=== PATIENT | female | born 1945 | race Caucasian/White ===

== ENCOUNTER → 2018-05-30 09:12 | Outpatient (CLI) | payer MEDICARE, SELFPAY ==
--- NOTE | 2018-05-30 | DI.MG.S_ITS ---
BILATERAL DIGITAL SCREENING MAMMOGRAM 3D/2D WITH CAD: 05/30/2018 CLINICAL: Routine screening. Comparison is made to exams dated: 05/03/2017 mammogram, 11/12/2015 mammogram - [facility], and 04/10/2012 mammogram - [facility]. There are scattered fibroglandular elements in both breasts. Current study was also evaluated with a Computer Aided Detection (CAD) system. There is a mole marker on the left breast. No significant masses, calcifications, or other findings are seen in either breast. There has been no significant interval change. IMPRESSION: NEGATIVE There is no mammographic evidence of malignancy. A 1 year screening mammogram is recommended. This exam was interpreted at Station ID: [id number]. NOTE: For mammograms, a report in lay terms will be sent to the patient. Approximately 15% of breast malignancies will not be visualized mammographically. In the management of a palpable breast mass, a negative mammogram must not discourage biopsy of a clinically suspicious lesion. Electronically Signed By: Jose Juan pizarro/pankaj:05/30/2018 18:46:04 letter sent: Normal Exam ACR BI-RADS Category 1: Negative 3341F
== END ==
PROVIDERS: PCP Physician Assistant; Visit Provider Physician Assistant
DX: Z12.31 Encounter for screening mammogram for malignant neoplasm of breast (principal)
CPT/HCPCS: 77063; 77067

== ENCOUNTER → 2019-06-18 08:53 | Outpatient (CLI) | payer MEDICARE, SELFPAY ==
--- NOTE | 2019-06-18 | DI.MG.S_ITS ---
BILATERAL DIGITAL SCREENING MAMMOGRAM 3D/2D WITH CAD: 06/18/2019 CLINICAL: Routine screening. Family history of breast cancer. Comparison is made to exams dated: 05/30/2018 mammogram, 05/03/2017 mammogram, and 11/12/2015 mammogram - [facility]. There are scattered fibroglandular elements in both breasts. Current study was also evaluated with a Computer Aided Detection (CAD) system. No significant masses, calcifications, or other findings are seen in either breast. There has been no significant interval change. IMPRESSION: NEGATIVE There is no mammographic evidence of malignancy. A 1 year screening mammogram is recommended. This exam was interpreted at Station ID: [id number]. NOTE: For mammograms, a report in lay terms will be sent to the patient. Approximately 15% of breast malignancies will not be visualized mammographically. In the management of a palpable breast mass, a negative mammogram must not discourage biopsy of a clinically suspicious lesion. Electronically Signed By: Armando trent/pankaj:06/18/2019 10:04:24 letter sent: Normal Exam ACR BI-RADS Category 1: Negative 3341F
== END ==
PROVIDERS: PCP Physician Assistant; Visit Provider Physician Assistant
DX: Z12.31 Encounter for screening mammogram for malignant neoplasm of breast (principal); Z80.3 Family history of malignant neoplasm of breast
CPT/HCPCS: 77063; 77067

== ENCOUNTER → 2020-06-22 08:27 | Outpatient (CLI) | payer MEDICARE, BC, SELFPAY ==
--- NOTE | 2020-06-22 08:34 | DI.MG.S_ITS ---
BILATERAL DIGITAL SCREENING MAMMOGRAM 3D/2D WITH CAD: 06/22/2020 CLINICAL: Routine screening. Family history of breast cancer. Comparison is made to exams dated: 06/18/2019 mammogram, 05/30/2018 mammogram, and 05/03/2017 mammogram - [facility]. There are scattered fibroglandular elements in both breasts. Current study was also evaluated with a Computer Aided Detection (CAD) system. No significant masses, calcifications, or other findings are seen in either breast. There has been no significant interval change. IMPRESSION: NEGATIVE There is no mammographic evidence of malignancy. A 1 year screening mammogram is recommended. This exam was interpreted at Station ID: [id number]. NOTE: For mammograms, a report in lay terms will be sent to the patient. Approximately 15% of breast malignancies will not be visualized mammographically. In the management of a palpable breast mass, a negative mammogram must not discourage biopsy of a clinically suspicious lesion. Electronically Signed By: Armando trent/pankaj:06/22/2020 08:58:39 letter sent: Normal Exam ACR BI-RADS Category 1: Negative 3341F
== END ==
PROVIDERS: PCP Physician Assistant; Referring Provider Physician Assistant; Visit Provider Physician Assistant
DX: Z12.31 Encounter for screening mammogram for malignant neoplasm of breast (principal); Z80.3 Family history of malignant neoplasm of breast
CPT/HCPCS: 77063; 77067

== ENCOUNTER → 2021-04-05 08:41 | Outpatient (CLI) | payer MEDICARE, BC, SELFPAY ==
[2021-04-05 13:09] LABS: COVID19 -Nasal RAPID Negative (Negative)
== END ==
PROVIDERS: PCP Physician Assistant; Referring Provider Physician Assistant; Visit Provider Physician Assistant
DX: Z20.822 Contact with and (suspected) exposure to COVID-19 (principal); Z01.812 Encounter for preprocedural laboratory examination
CPT/HCPCS: 87635; C9803

== ENCOUNTER 2021-04-07 07:10 | Day surgery (SDC) | payer MEDICARE, BC, SELFPAY ==
--- NOTE | 2021-04-06 17:28 | PM.PREOP ---
Pre-operative Note COVID-19 COVID-19 status: Negative Interval Note History & Physical reviewed/Exam performed by Physician: Yes Changes to H&P: No
--- NOTE | 2021-04-06 17:29 | P.OP_ITS ---
Operative Date/Time/Diagnoses Date of procedure: 04/07/21 Time of procedure: 08:45 Procedure & Clinicians Procedure: Preoperative diagnoses: 1. Left advanced nuclear sclerotic and cortical cataract. 2. Rosacea 3. History of skin cancer 4. 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 Cataract removed by phacoemulsification with placement of posterior chamber intraocular lens. Procedure: Phacoemulsification with posterior chamber intraocular lens implant Surgeon: Blanca Napoles MD Complications: None Specimen: None Implant: DIBOO+17.0 Blood loss: None Anesthesia: Retrobulbar with monitored standby Description of procedure: Patient presents with a complaint of decreased vision due to cataract which is affecting activities of daily living with problems with night driving. The patient wants surgery to improve vision. The patient understands the extra risk of surgery during the COVID-19 epidemic and wishes to proceed. They have tested negative for active virus within 72 hours of the procedure. The patient was taken to the operating room and given IV sedation. A retrobulbar block consisting of 6 cc of 2% xylocaine without epinephrine mixed half and half with 0.5% Marcaine with 1 cc of hyaluronidase added is placed between the medial and lateral 1/3 of the inferior orbital rim. The eye is manually massaged for 30 sec, prepped using Betadine solution, and draped in the usual sterile fashion. Temporal approach was made, a 1 mm side-port incision was made 90? from the proposed clear corneal incision position. Phenylephrine 1.5% mixed with 1% xylocaine 0.2 cc was placed into the anterior chamber .Endocoat followed by Sveta was then placed. A 2.6 mm clear incision with a 2.6 mm blade was placed. A 360 degree capsulorrhexis style capsulotomy was then performed with a cystitome needle on a Healon. Hydrodelineation and hydrodissection were performed. The phacoemulsification unit is introduced, and sculpting notice used to groove the central lens. It is then removed in chopping mode. Epi nucleus is removed with epinuclear mode and irrigation aspiration was used to remove the peripheral cortex. The posterior capsule is polished. The intraocular lens is selected, inspected, power confirmed, and placed in the posterior chamber. The wound was stromally hydrated and tested for leaks, there was none and it was left sutureless. Intracameral moxifloxacin 0.1 cc was placed into the anterior chamber. Kenalog 0.2 cc was placed in the superior subconjunctival space. A drop of antibiotic and was placed and the eye was patched and shielded. The patient was stable and returned to the recovery room in excellent condition. Dictated by: Blanca Napoles MD Copy to: [facility] Same procedure as scheduled: Yes
[2021-04-07] MEDS: PROPARACAINE 0.5% OPHTH SOL 2 DROPS EYE-OP (07:55)
[2021-04-07] MEDS: CATARACT EYE COMPOUND (10 DROPS/SYRINGE) 3 DROPS EYE-OP (07:57)
[2021-04-07 07:58] VITALS: BP 162/80; PULSE 69; RESP 16; TEMP 36.6; O2SAT 100; BMI 24.3
[2021-04-07] MEDS: ERYTHROMYCIN OPHTH 1 GM OINT 1 APPLIC EYE-LEFT (08:58)
[2021-04-07] MEDS: TRIAMCINOLONE 50 MG/5 ML VIAL INJ (08:59)
[2021-04-07] MEDS: MOXIFLOXACIN INJ 4 MG/0.8 ML VIAL 0.5 MG EYE-OP (08:59)
[2021-04-07] MEDS: PHENYLEPHRINE/LIDOCAINE VIAL (OR) 0.2 ML EYE-OP (08:59)
[2021-04-07] MEDS: HYALURONATE SODIUM 30 MG-10 MG/ML SYRINGES 1 BOX INTRAOCULA (08:59)
[2021-04-07] MEDS: LIDOCAINE 2% 4 ML, BUPIVACAINE 0.5% (PF) 4 ML, HYALURONIDASE 150 UNIT INJ (09:00)
[2021-04-07] MEDS: BALANCED SALT IRRIG SOLN NO.2 500 ML, EPINEPHrine 1 MG IRR (09:00)
[2021-04-07 09:41] VITALS: BP 133/74; PULSE 55; RESP 16; TEMP 35.9; O2SAT 100
--- NOTE | 2021-04-07 11:40 | SUR.PHASEII ---
Late entry: Pt ready to go, left unit in stable condition.
== END 2021-04-07 10:05 | disposition home or self-care (01) ==
LOC: OR 07:12
PROVIDERS: Referring Provider Ophthalmology; Visit Provider Ophthalmology
PROC: (CPT 66984; principal; 2021-04-07 08:45)
DX: H25.812 Combined forms of age-related cataract, left eye (principal)
CPT/HCPCS: 66984; J0171; J2704; J3301; J3470

== ENCOUNTER → 2021-05-03 11:07 | Outpatient (CLI) | payer MEDICARE, BC, SELFPAY ==
[2021-05-03 12:26] LABS: COVID19 -Nasal RAPID Negative (Negative)
== END ==
PROVIDERS: Referring Provider Nurse Practitioner Family; Visit Provider Nurse Practitioner Family
DX: Z20.822 Contact with and (suspected) exposure to COVID-19 (principal)
CPT/HCPCS: 87635; C9803

== ENCOUNTER 2021-05-05 06:17 | Day surgery (SDC) | payer MEDICARE, BC, SELFPAY ==
--- NOTE | 2021-05-04 19:30 | PM.PREOP ---
Pre-operative Note COVID-19 COVID-19 status: Negative Interval Note History & Physical reviewed/Exam performed by Physician: Yes Changes to H&P: No
--- NOTE | 2021-05-04 19:30 | PM.OP.1 ---
Operative Date/Time/Diagnoses Date of procedure: 05/05/21 Time of procedure: 07:45 Procedure & Clinicians Procedure: Preoperative diagnoses: 1. Right significant nuclear sclerotic and cortical cataract. 2. History of shingles 3. Recently diagnosed tobramycin allergy due to hives. Postoperative diagnoses: 1. Cataract removed by phacoemulsification with placement of posterior chamber intraocular lens. Procedure: Phacoemulsification with posterior chamber intraocular lens implant Surgeon: Blanca Napoles MD Complications: None Specimen: None Implant: DIBOO+17.5 Blood loss: None Anesthesia: Retrobulbar with monitored standby Description of procedure: Patient presents with a complaint of decreased vision due to cataract which is affecting activities of daily living with problems with night driving. She is uncomfortable driving at night even after her left cataract surgery. The patient wants surgery to improve vision. The patient understands the extra risk of surgery during the COVID-19 epidemic and wishes to proceed. They have tested negative for active virus within 72 hours of the procedure. The patient was taken to the operating room and given IV sedation. A retrobulbar block consisting of 6 cc of 2% xylocaine without epinephrine mixed half and half with 0.5% Marcaine with 1 cc of hyaluronidase added is placed between the medial and lateral 1/3 of the inferior orbital rim. The eye is manually massaged for 30 sec, prepped using Betadine solution, and draped in the usual sterile fashion. For extra comfort lidocaine gel was applied topically. Temporal approach was made, a 1 mm side-port incision was made 90? from the proposed clear corneal incision position. Phenylephrine 1.5% mixed with 1% xylocaine 0.2 cc was placed into the anterior chamber .Endocoat followed by Sveta was then placed. A 2.6 mm clear incision with a 2.6 mm blade was placed. A 360 degree capsulorrhexis style capsulotomy was then performed with a cystitome needle on a Healon. Hydrodelineation and hydrodissection were performed. The phacoemulsification unit is introduced, and sculpting notice used to groove the central lens. It is then removed in chopping mode. Epi nucleus is removed with epinuclear mode and irrigation aspiration was used to remove the peripheral cortex. The posterior capsule is polished. The intraocular lens is selected, inspected, power confirmed, and placed in the posterior chamber. The wound was stromally hydrated and tested for leaks, there was none and it was left sutureless. Intracameral moxifloxacin 0.1 cc was placed into the anterior chamber. Kenalog 0.2 cc was placed in the superior subconjunctival space. A drop of antibiotic and was placed and the eye was patched and shielded. The patient was stable and returned to the recovery room in excellent condition. Dictated by: Blanca Napoles MD Copy to: [facility] Same procedure as scheduled: Yes
[2021-05-05 06:48] VITALS: BP 136/73; PULSE 63; RESP 18; TEMP 36.9; O2SAT 100; BMI 23.6
[2021-05-05] MEDS: PROPARACAINE 0.5% OPHTH SOL 2 DROPS EYE-OP (06:54)
[2021-05-05] MEDS: CATARACT EYE COMPOUND (10 DROPS/SYRINGE) 3 DROPS EYE-OP (07:01)
[2021-05-05] MEDS: LIDOCAINE 2% 4 ML, BUPIVACAINE 0.5% (PF) 4 ML, HYALURONIDASE 150 UNIT INJ (08:03)
[2021-05-05] MEDS: ERYTHROMYCIN OPHTH 1 GM OINT 1 APPLIC EYE-RIGHT (08:19)
[2021-05-05] MEDS: HYALURONATE SODIUM 30 MG-10 MG/ML SYRINGES 1 BOX INTRAOCULA (08:20)
[2021-05-05] MEDS: MOXIFLOXACIN INJ 4 MG/0.8 ML VIAL 0.5 MG EYE-OP (08:20)
[2021-05-05] MEDS: TRIAMCINOLONE 50 MG/5 ML VIAL INJ (08:20)
[2021-05-05] MEDS: PHENYLEPHRINE/LIDOCAINE VIAL (OR) 0.2 ML EYE-OP (08:20)
[2021-05-05] MEDS: BALANCED SALT IRRIG SOLN NO.2 500 ML, EPINEPHrine 1 MG IRR (08:21)
[2021-05-05] MEDS: LIDOCAINE 2% (GLYDO) 6 ML GEL TOP (08:23)
[2021-05-05 08:53] VITALS: BP 125/74; PULSE 62; RESP 16; TEMP 36.7; O2SAT 100
--- NOTE | 2021-05-05 09:03 | SUR.PHASEII ---
Pt ready to go, ride called. Ride did not answer, message left.
--- NOTE | 2021-05-05 09:09 | SUR.PHASEII ---
Pt left unit in stable condition.
== END 2021-05-05 09:09 | disposition home or self-care (01) ==
LOC: OR 06:18
PROVIDERS: Referring Provider Ophthalmology; Visit Provider Ophthalmology
PROC: (CPT 66984; principal; 2021-05-05 07:45)
DX: H25.811 Combined forms of age-related cataract, right eye (principal)
CPT/HCPCS: 66984; J0171; J2704; J3301; J3470

== ENCOUNTER → 2022-11-16 | Outpatient (CLI) | payer MEDICARE, BC, SELFPAY ==
--- NOTE | 2022-11-16 09:52 | DI.MG.S_ITS ---
BILATERAL DIGITAL SCREENING MAMMOGRAM 3D/2D WITH CAD: 11/16/2022 CLINICAL: Routine screening. Family history of breast cancer. Comparison is made to exams dated: 06/22/2020 mammogram, 06/18/2019 mammogram, 05/30/2018 mammogram, and 05/03/2017 mammogram - [facility]. There are scattered areas of fibroglandular density in both breasts (category b / 25%-50% glandular tissue). Current study was also evaluated with a Computer Aided Detection (CAD) system. No significant masses, calcifications, or other findings are seen in either breast. There has been no significant interval change. IMPRESSION: NEGATIVE There is no mammographic evidence of malignancy. A 1 year screening mammogram is recommended. Based on the Tyrer Cuzick model (a risk assessment model) the patient's lifetime risk is 6.0% and her 10 year risk is 6.0%. According to the ACR, ACS, and NCCN guidelines, an annual breast MRI exam along with mammogram is recommended if the patient's lifetime risk is 20% or greater. This exam was interpreted at Station ID: [id number]. NOTE: For mammograms, a report in lay terms will be sent to the patient. Approximately 15% of breast malignancies will not be visualized mammographically. In the management of a palpable breast mass, a negative mammogram must not discourage biopsy of a clinically suspicious lesion. Electronically Signed By: Rolando campos/pankaj:11/16/2022 15:27:17 letter sent: Normal Exam ACR BI-RADS Category 1: Negative 3341F
--- NOTE | 2022-11-16 09:52 | DI.RAD.S_ITS ---
Bone Density Report Name: KAITLIN OLMOS Age: 77 Sex: Female Ethnicity: White Date of : 1945 Indication: postmenopausal; screening for osteoporosis; Referring Provider: CRISTOFER OTTO Study: Bone densitometry was performed. Exam Date: November 16, 2022 Accession number: [id number] Bone Density: Region BMD T-score Z-score Classification AP Spine(L1, L2, L3) 0.732 -2.6 -0.2 Osteoporosis Femoral Neck (Left) 0.554 -2.7 -0.5 Osteoporosis Total Hip (Left) 0.673 -2.2 -0.4 Osteopenia Femoral Neck (Right) 0.544 -2.7 -0.6 Osteoporosis Total Hip (Right) 0.661 -2.3 -0.5 Osteopenia Total Hip Mean 0.667 -2.3 -0.5 Osteopenia World Health Organization criteria for BMD impression classify patients as: Normal (T-score at or above -1.0), Osteopenia (T-score between -1.0 and -2.5), or Osteoporosis (T-score at or below -2.5). 10-year Fracture Risk: FRAX not reported because: Some T-score for Spine Total or Hip Total or Femoral Neck at or below -2.5 Impression: The patient has osteoporosis, based on the Left Femoral Neck T-score. Discussion: INCREASED RISK OF FRACTURE. BONE DENSITY IS UNDESIRABLY LOW AT ONE OR MORE SKELETAL SITES, CONSISTENT WITH POSTMENOPAUSAL OSTEOPOROSIS. This patient's lowest T-score meets the World Health Organization's (WHO) criteria for osteoporosis at one or more sites (T-score -2.5 or below). In untreated patients, the risk of osteoporotic fracture increases approximately two-fold for each 1.0 SD decrease in T-score. Low bone density is not the only risk factor for fracture; also consider factors such as patient's age, frailty or poor health, risk of falling, risk of injury, previous osteoporotic fracture, family history of osteoporosis, cigarette smoking, low body weight, etc. Not everyone with low bone mineral density has osteoporosis; osteomalacia and other metabolic bone disorders should also be considered. Patients who have osteoporosis should be evaluated for specific diseases and conditions (secondary causes) that may cause or contribute to bone loss. The [place] [employer] Endocrinologists (AACE) and National Osteoporosis Foundation (NOF) recommend pharmacologic intervention for all postmenopausal women whose T-score is in this range. The patient should follow a healthful lifestyle (good nutrition with adequate calcium and vitamin D, and appropriate weight-bearing exercise). Follow-Up: Consider a repeat BMD and Vertebral Fracture Assessment (VFA) exam in 2 years or sooner if medically necessary, to reassess this patient's status. Reported by: FABIOLA GONSALES M.D. on 11/16/2022 10:45:00 AM.
--- NOTE | 2022-11-16 09:52 | DI.US.S_ITS ---
PROCEDURE: US PELVIC COMPLETE INDICATIONS: PAIN AND FAMILY HISTORY OF UTERINE CANCER (MOM) TECHNIQUE: Real-time scanning was performed of the pelvic organs, with image documentation. Additional endovaginal scanning was necessary due to incomplete visualization of the adnexal and endometrial structures by transabdominal scanning. COMPARISON: None. FINDINGS: Uterus: Uterus is anteverted and normal in size at 6.4 x 3.9 x 2.8 cm. The myometrium is heterogeneous with foci of calcification. The endometrium measures 5.8 mm combined thickness. Nabothian cysts are seen in cervix. There is trace anechoic fluid in the endocervical canal. Ovaries: The right ovary is not visualized. The left ovary measures 2.4 x 1.5 x 1.0 cm, with a calculated ovarian volume of 1.9 cc. The ovaries have a normal sonographic appearance. Less than 12 follicles can be seen in the left ovary. There is arterial venous flow on Doppler ultrasound in left ovary. No adnexal masses are seen. Other: No pathologic free abdominal or pelvic fluid. IMPRESSION: 1. Endometrium is thickened measuring 5.8 mm. In the postmenopausal woman, endometrial cancer needs to be excluded. Recommend endometrial sampling. 2. Heterogeneous myometrium with foci of calcification. 3. Right ovary is not visualized. Left ovary is grossly normal. 4. No free fluid in pelvis. We strive to produce accurate, complete, and clear reports of imaging services. To assist us in improving patient care, this report was composed using standard report templates and voice recognition software. Therefore, it may contain abnormal punctuation, insertions and/or omissions. Occasional wrong-word or sound-alike substitutions may occur. Though we review the report and make efforts to correct it, we do recommend that the report be read carefully in proper context to recognize any text inaccuracies. Dictated by: Masoud Martin M.D. on 11/17/2022 at 9:23 Approved by: Masoud Martin M.D. on 11/17/2022 at 9:26
== END ==
PROVIDERS: PCP Nurse Practitioner; Referring Provider Nurse Practitioner; Visit Provider Nurse Practitioner
DX: Z12.31 Encounter for screening mammogram for malignant neoplasm of breast (principal); Z13.820 Encounter for screening for osteoporosis; M81.0 Age-related osteoporosis without current pathological fracture; Z80.3 Family history of malignant neoplasm of breast; Z78.0 Asymptomatic menopausal state; R93.89 Abnormal findings on diagnostic imaging of other specified body structures; R10.2 Pelvic and perineal pain
CPT/HCPCS: 76830; 76856; 77063; 77067; 77080; 93975

== ENCOUNTER → 2022-12-15 07:42 | Outpatient (CLI) | payer MEDICARE, BC, SELFPAY ==
[2022-12-15 09:52] LABS: Cholesterol 225 mg/dL (140-199); HDL Cholesterol 81 mg/dL (40-60); LDL Cholesterol Calculated 129 mg/dL (<100); Triglycerides 76 mg/dL (35-150)
== END ==
PROVIDERS: PCP Nurse Practitioner; Referring Provider Nurse Practitioner; Visit Provider Nurse Practitioner
DX: Z13.6 Encounter for screening for cardiovascular disorders (principal)
CPT/HCPCS: 36415; 80061

== ENCOUNTER 2023-01-31 11:29 | Day surgery (SDC) | payer MEDICARE, BC, SELFPAY ==
--- NOTE | 2023-01-31 | PATH_ITS ---
[facility] Accession Number: [id number] No. of containers..01 Tissue . 01 Material submitted: . colon - ASCENDING COLON . 01 Diagnosis: Ascending Colon Polyp, Biopsy: Serrated polyp with focal crypt architectural features, consistent with sessile serrated adenoma. MRV 02/07/2023 1744 Local . 01 Electronically signed: . Guerline Li MD, Pathologist NPI- [id number] . 01 Gross description: . ASCENDING COLON: Received in formalin is 1 fragment(s) of mejia, soft tissue measuring 0.3 x 0.3 x 0.2 cm in aggregate submitted entirely in 1 cassette(s) /AAY 02/01/2023 0437 Local . 01 Pathologist provided ICD-10: D12.2 . 01 CPT . 538239 Specimen Comment: A courtesy copy of this report has been sent to [phone] Performed at: 01 [facility] [address] [place] [address] [address] [facility], [place], [place] [id number] MD Chip Kaplan MD Phone: [phone]
[2023-01-31] MEDS: LACTATED RINGERS 1,000 ML 200 ML IV (12:04)
[2023-01-31 12:10] VITALS: BP 144/75; PULSE 63; RESP 16; TEMP 36.2; O2SAT 100; BMI 23.8
--- NOTE | 2023-01-31 12:38 | PM.HP.1 ---
History of Present Illness History of Present Illness Date Patient Seen: 01/31/23 Time Patient Seen: 12:39 Chief complaint: [facility] Narrative: 77-year-old woman here for screening colonoscopy. Last colonoscopy approximately 12 years ago normal. No abdominal concerns today including pain blood per rectum unintentional weight loss altered bowel function. No family history of intestinal malignancy. [facility] Medical History (Updated 12/22/22 @ 11:25 by JULIO Serrato) Acne (~1959) Allergies (~2012) Cataracts, bilateral (~2014) Chicken pox (~1951) Dairy allergy Drug allergy Finger fracture (~2009) Hip pain (~2003) History of skin cancer History of skin disorder (~1983) LDL-c greater than or equal to 100 mg/dl Measles Multiple food allergies Mumps Osteoporosis Pain of ovary (~2009) Plantar fasciitis (~1999) Rosacea Skin cancer Urticaria (~2012) Surgical History Anesthesia History of cataract removal with insertion of prosthetic lens (~04/07/21) History of section History of dilatation and curettage (~1981) History of ear surgery (~1954) History of tonsillectomy and adenoidectomy Family History Father History of heart disease Hypertension Hyperlipidemia Smoker Alcoholism Mother Cancer Breast cancer Brother Appendicitis Stomach cancer History of heart disease History of heart valve repair Sister Dementia Stroke Uterine cancer Sister Obesity Grandfather Stroke Grandmother No problems noted. Grandfather History of heart disease Hypertension Hyperlipidemia Grandmother History of heart disease Stroke Social History household members: spouse Smoking Status: Never smoker alcohol intake: current Meds Home Medications and Allergies Home Medications Medication Instructions Recorded Confirmed Type coenzyme Q10-red yeast rice 25 See Rx Instructions PO .COMPLEX 12/20/22 01/31/23 History mg-600 mg capsule olive leaf extract 250 mg capsule See Rx Instructions PO .COMPLEX 12/20/22 01/31/23 History Allergies Allergy/AdvReac Type Severity Reaction Status Date / Time diphenhydramine Allergy Severe Anaphylaxis Verified 01/31/23 12:07 [From BENADRYL] Sulfa (Sulfonamide Allergy Severe Anaphylaxis Verified 01/31/23 12:07 Antibiotics) [SULFA (SULFONAMIDE ANTIBIOTICS)] tobramycin Allergy Severe Hives Verified 01/31/23 12:07 Exam Vital Signs (past 8 hours): - 01/31/23 12:10 Temperature 97.1 F L Pulse Rate 63 Respiratory Rate 16 Blood Pressure 144/75 H Pulse Oximetry 100 Oxygen Delivery Method Room Air Oxygen Delivery Method Room Air Narrative Exam Narrative: General adult woman alert oriented no acute distress Abdomen soft nontender nondistended Assessment & Plan Assessment & Plan narrative: The patient requires colorectal screening and colonoscopy is recommended. Technical details were discussed. Risks, benefits, alternatives explained. Risks including but not limited to myocardial infarction, aspiration, bleeding, pain, missed lesion, incomplete examination, need for further radiographic studies, colonic perforation, and need for major abdominal surgery were discussed. All questions were answered to their satisfaction, and they are in agreement with this plan.
--- NOTE | 2023-01-31 12:40 | PM.OP.COLON ---
Operative Date/Time/Diagnoses Date of procedure: 01/31/23 Time of procedure: 12:40 Pre-op diagnosis: Colorectal screening Post-op diagnosis: other (colonic polyp x 1) Procedure & Clinicians Study performed: Colonoscopy Same procedure as scheduled: Yes Indications: Colorectal screening Surgeon: Keegan Arnett Procedure Notes Procedure in detail: The history and physical was performed/updated and the patient is ASA class is 2. The procedure was discussed in detail with the patient. Potential risks complications including infection, bleeding, missed diagnosis, perforation, need for surgery, and were explained. Their questions were answered and informed consent was obtained. Patient was brought to the procedure room and placed standard monitoring equipment. The patient's vital signs were monitored continuously throughout the entire procedure. Prior to starting time-out was performed. The patient was placed in the left lateral recumbent position. Procedural sedation was administered by anesthesia. Examination began with a thorough inspection of the perianal area there was no evidence of fissures, fistulae, external hemorrhoids or cutaneous malignancy. The colonoscopy scope was then placed into the anal canal and was advanced to the cecum, which was identified by the ileocecal valve, the appendiceal orifice and the confluence of the taenia. The scope was then slowly withdrawn examining colon thoroughly in all directions, irrigating it of any residual stool. Ascending colon-3 mm polyp removed with biopsy forceps Descending colon-moderate diverticulosis The patient tolerated the procedure well. They will be discharged once criteria are met. The prep was of good/excellent quality. The withdrawl time was 7 minutes. Specimen(s): other (ascending colon polyp) Impression: colonic polyp x 1 Post-procedure Recommendations: High fiber diet Plan for aftercare: Follow up dependent on pathology findings. No further colonoscopy necessary unless symptomatic Disposition: same day surgery
[2023-01-31 13:05] VITALS: BP 94/59; PULSE 73; RESP 17; TEMP 36.6; O2SAT 93
[2023-01-31 13:10] VITALS: BP 93/56; PULSE 68; RESP 19; O2SAT 95
[2023-01-31 13:15] VITALS: BP 115/57; PULSE 84; RESP 14; TEMP 36.6; O2SAT 96
== END 2023-01-31 13:31 | disposition home or self-care (01) ==
PROVIDERS: PCP Nurse Practitioner; Referring Provider Surgery; Visit Provider Surgery
PROC: 0DJD8ZZ Inspection of Lower Intestinal Tract, Via Natural or Artificial Opening Endoscopic (ICD-10-PCS; CPT 45378; principal; 2023-01-31 13:00)
DX: Z12.11 Encounter for screening for malignant neoplasm of colon (principal); K57.30 Diverticulosis of large intestine without perforation or abscess without bleeding; D12.2 Benign neoplasm of ascending colon
CPT/HCPCS: 45380; J2704

== ENCOUNTER → 2023-07-04 15:14 | Outpatient (CLI) | payer MEDICARE, BC, SELFPAY ==
--- NOTE | 2023-07-04 15:17 | DI.US.S_ITS ---
PROCEDURE: US ABDOMEN LIMITED INDICATIONS: LEFT LOWER QUADRANT LUMP ?HERNIA TECHNIQUE: Real-time focused scanning was performed of the abdomen, with image documentation. COMPARISON: None. FINDINGS: Scanning is performed at the area of clinical concern, including with Valsalva maneuver. No hernias are seen. No masses, lipomas, or fluid collections are seen. IMPRESSION: Normal ultrasound. Negative for hernia or mass. Dictated by: Chase Jean M.D. on 07/04/2023 at 15:53 Approved by: Chase Jean M.D. on 07/04/2023 at 15:53
== END ==
LOC: US 15:15
PROVIDERS: PCP Nurse Practitioner; Referring Provider Nurse Practitioner; Visit Provider Nurse Practitioner
DX: K46.9 Unspecified abdominal hernia without obstruction or gangrene (principal)
CPT/HCPCS: 76705

== ENCOUNTER → 2023-08-08 06:43 | Outpatient (CLI) | payer MEDICARE, BC, SELFPAY ==
--- NOTE | 2023-08-08 06:45 | DI.US.S_ITS ---
PROCEDURE: US PELVIC COMPLETE INDICATIONS: FOLLOW-UP ENDO THICKENING TECHNIQUE: Real-time scanning was performed of the pelvic organs, with image documentation. Additional endovaginal scanning was necessary due to incomplete visualization of the adnexal and endometrial structures by transabdominal scanning. COMPARISON: [facility], US, US PELVIC COMPLETE, 02/15/2023, 9:21. FINDINGS: Uterus: Uterus is anteverted and normal in size at 6.1 x 2.5 x 3.5 cm. The myometrium is homogeneous. The endometrium measures 2 millimeters mm combined thickness. However, there is a heterogeneous filling defect without vascularity within the endometrium, measuring approximately 0.9 x 0.5 x 1.0 centimeters. Ovaries: Not visualized due to presumed atrophy and overlying bowel gas. Other: No pathologic free abdominal or pelvic fluid. IMPRESSION: The endometrium measures 2 millimeters in combined thickness. However, there is a heterogeneous filling defect within the endometrium, measuring approximately 0.9 x 0.5 x 1.0 centimeters. Consider tissue sampling to exclude early malignancy. We strive to produce accurate, complete, and clear reports of imaging services. To assist us in improving patient care, this report was composed using standard report templates and voice recognition software. Therefore, it may contain abnormal punctuation, insertions and/or omissions. Occasional wrong-word or sound-alike substitutions may occur. Though we review the report and make efforts to correct it, we do recommend that the report be read carefully in proper context to recognize any text inaccuracies. Dictated by: Matty Clark M.D. on 08/08/2023 at 9:10 Approved by: Matty Clark M.D. on 08/08/2023 at 9:13
== END ==
LOC: US 06:44
PROVIDERS: PCP Nurse Practitioner; Referring Provider Specialist; Visit Provider Specialist
DX: R93.89 Abnormal findings on diagnostic imaging of other specified body structures (principal); R10.32 Left lower quadrant pain; N85.9 Noninflammatory disorder of uterus, unspecified
CPT/HCPCS: 76830; 76856

== ENCOUNTER → 2023-08-29 10:26 | Outpatient (CLI) | payer MEDICARE, BC, SELFPAY ==
[2023-08-29 11:08] LABS: Appearance Urine UA CLEAR; Bilirubin Urine UA NEGATIVE (NEGATIVE); Color Urine UA YELLOW; Glucose Urine UA NEGATIVE (Negative); Ketones Urine UA NEGATIVE (NEGATIVE); Leukocyte Esterase Urine UA 1+ (NEGATIVE); Nitrite Urine UA NEGATIVE (Negative); Occult Blood Urine UA NEGATIVE (Negative); Protein Urine UA NEGATIVE (Negative); Specific Gravity Urine UA <=1.005 (1.000-1.035); Urobilinogen Urine UA 0.2 E.U./dL (0.2)
[2023-08-29 11:35] LABS: pH Urine UA 6.5 (4.5-8.0)
[2023-08-29 12:06] LABS: Bacteria Urine Occasional (0-1); Culture Indicated Urine Specimen Cultured; RBC Urine 0-1/HPF (0-5/HPF); Squamous Epithelial Cell Urine 0-1 /HPF (0-5/HPF); Urine Volume 10mL (spun); WBC Urine 5-10/HPF (0-5/HPF)
== END ==
PROVIDERS: PCP Nurse Practitioner; Referring Provider Specialist; Visit Provider Specialist
DX: R30.0 Dysuria (principal)
CPT/HCPCS: 81001; 87086

== ENCOUNTER → 2023-08-30 06:15 | Outpatient (CLI) | payer MEDICARE, BC, SELFPAY ==
[2023-08-30 08:35] LABS: Cholesterol 172 mg/dL (140-199); HDL Cholesterol 49 mg/dL (40-60); LDL Cholesterol Calculated 112 mg/dL (<100); Triglycerides 53 mg/dL (35-150)
== END ==
PROVIDERS: PCP Nurse Practitioner; Referring Provider Nurse Practitioner; Visit Provider Nurse Practitioner
DX: Z78.9 Other specified health status (principal)
CPT/HCPCS: 36415; 80061

== ENCOUNTER → 2023-09-01 11:39 | Outpatient (CLI) | payer MEDICARE, BC, SELFPAY ==
[2023-09-02 13:18] LABS: Candida species Negative (Negative); Gardnerella vaginalis Negative (Negative); Trichomoas vaginalis Negative (Negative)
== END ==
PROVIDERS: PCP Nurse Practitioner; Visit Provider Specialist
DX: N94.9 Unspecified condition associated with female genital organs and menstrual cycle (principal)
CPT/HCPCS: 87480; 87510; 87660

== ENCOUNTER → 2023-10-12 09:56 | Outpatient (CLI) | payer MEDICARE, BC, SELFPAY | PROVIDERS: PCP Nurse Practitioner; Visit Provider Urology | DX: R39.9 Unspecified symptoms and signs involving the genitourinary system (principal) | CPT/HCPCS: 87086 ==

== ENCOUNTER → 2024-01-06 08:42 | Outpatient (CLI) | payer MEDICARE, BC, SELFPAY ==
--- NOTE | 2024-01-06 | DI.MG.S_ITS ---
BILATERAL DIGITAL SCREENING MAMMOGRAM 3D/2D WITH CAD: 01/06/2024 CLINICAL: Routine screening. Family history of breast cancer. Comparison is made to exams dated: 11/16/2022 mammogram, 06/22/2020 mammogram, and 06/18/2019 mammogram - [facility]. There are scattered areas of fibroglandular density in both breasts (category b / 25%-50% glandular tissue). Current study was also evaluated with a Computer Aided Detection (CAD) system. No significant masses, calcifications, or other findings are seen in either breast. There has been no significant interval change. IMPRESSION: NEGATIVE There is no mammographic evidence of malignancy. A 1 year screening mammogram is recommended. Based on the Tyrer Cuzick model (a risk assessment model) the patient's lifetime risk is 5.5% and her 10 year risk is 0.0%. According to the ACR, ACS, and NCCN guidelines, an annual breast MRI exam along with mammogram is recommended if the patient's lifetime risk is 20% or greater. This exam was interpreted at Station ID: [id number]. NOTE: For mammograms, a report in lay terms will be sent to the patient. Approximately 15% of breast malignancies will not be visualized mammographically. In the management of a palpable breast mass, a negative mammogram must not discourage biopsy of a clinically suspicious lesion. Electronically Signed By: Syeda stanton/pankaj:01/08/2024 10:16:28 letter sent: Normal Exam ACR BI-RADS Category 1: Negative 3341F
== END ==
PROVIDERS: PCP Nurse Practitioner; Referring Provider Nurse Practitioner; Visit Provider Nurse Practitioner
DX: Z12.31 Encounter for screening mammogram for malignant neoplasm of breast (principal); Z80.3 Family history of malignant neoplasm of breast; R92.323 Mammographic fibroglandular density, bilateral breasts
CPT/HCPCS: 77063; 77067

== ENCOUNTER 2024-03-26 15:30 | Emergency (ER) | payer MEDICARE, BC, SELFPAY ==
[2024-03-26 15:33] VITALS: BP 146/85; PULSE 67; RESP 16; TEMP 36.4; O2SAT 100; BMI 24.3
--- NOTE | 2024-03-26 15:37 | DI.RAD.S_ITS ---
PROCEDURE: XR SHOULDER RT MIN 2V INDICATIONS: fall/pain TECHNIQUE: 2 views of the shoulder were acquired. COMPARISON: None. FINDINGS: Bones: No fractures or dislocations. Moderate acromioclavicular joint osteoarthritic changes are seen. No suspicious bony lesions. Visualized ribs appear intact. Soft tissues: No suspicious soft tissue calcifications. IMPRESSION: No acute shoulder fracture or dislocation. Moderate acromioclavicular joint osteoarthritis. Dictated by: Tano Grady M.D. on 03/26/2024 at 16:27 Approved by: Tano Grady M.D. on 03/26/2024 at 16:27
--- NOTE | 2024-03-26 15:38 | DI.RAD.S_ITS ---
PROCEDURE: XR WRIST LT MIN 3V INDICATIONS: fall/pain TECHNIQUE: 4 views of the wrist were acquired. COMPARISON: None. FINDINGS: Bones: There is mild osteopenia. No acute fracture or dislocation. Osteoarthritic changes are noted throughout wrist joints. No evidence of avascular necrosis. Soft tissues: Lobulated calcification adjacent to tip of ulnar styloid is seen. Mild dorsal wrist soft tissue swelling is noted. IMPRESSION: Dorsal wrist soft tissue swelling with calcification over ulnar and volar aspect of left wrist likely represent sequelae from remote injury. No acute fracture or dislocation. Wrist joint osteoarthritis. Dictated by: Tano Grady M.D. on 03/26/2024 at 16:27 Approved by: Tano Grady M.D. on 03/26/2024 at 16:28
[2024-03-26 19:48] VITALS: PULSE 69; O2SAT 97
[2024-03-26 19:49] VITALS: BP 162/88; PULSE 69; O2SAT 96
[2024-03-26 20:00] VITALS: BP 137/67; PULSE 67; RESP 18; O2SAT 95
--- NOTE | 2024-03-26 20:24 | ED_ITS ---
HPI - Fall General Chief Complaint: Fall Stated Complaint: injury to rt shoulder and lt wrist, numb in lt wri Time Seen by Provider: 03/26/24 20:12 Source: patient Mode of arrival: Ambulatory History of Present Illness HPI Narrative: Patient is a 78-year-old female here for evaluation of injuries that she sustained when she stated that she was trying to reach for a dog that was running away and she fell forward landing on both of her outstretched hands. Did not hit her head. No loss of consciousness. She was here with left wrist pain and right shoulder pain. No other injuries from the event. No prior injuries to these joints. He was bruising to of the. Has discomfort with movement of the right shoulder. Related Data Home Medications Medication Instructions Recorded Confirmed coenzyme Q10-red yeast rice 25 See Rx Instructions PO .COMPLEX 12/20/22 12/05/23 mg-600 mg capsule olive leaf extract 250 mg capsule See Rx Instructions PO .COMPLEX 12/20/22 12/05/23 Previous Rx's Medication Instructions Recorded estradiol 0.01% (0.1 mg/gram) 1 g vaginal .COMPLEX #42.5 grams 11/27/23 vaginal cream Allergies Allergy/AdvReac Type Severity Reaction Status Date / Time diphenhydramine Allergy Severe Anaphylaxis Verified 12/05/23 13:23 [From BENADRYL] Sulfa (Sulfonamide Allergy Severe Anaphylaxis Verified 12/05/23 13:23 Antibiotics) [SULFA (SULFONAMIDE ANTIBIOTICS)] tobramycin Allergy Severe Hives Verified 12/05/23 13:23 phenazopyridine [From Azo] Allergy Mild pelvic Verified 12/05/23 13:23 spasms, incontience D mannose AdvReac Intermediate Muscle Uncoded 12/05/23 13:23 spasms in pelvis Review of Systems Review of Systems Narrative: See HPI Patient History Medical History History of urinary tract infection Postmenopausal atrophic vaginitis Incomplete emptying of bladder Dysuria Urethral pain Hesitancy of micturition Urgency of micturition Hx gestational diabetes Osteoporosis LDL-c greater than or equal to 100 mg/dl History of skin cancer Drug allergy Dairy allergy Multiple food allergies Urticaria (~2012) History of skin disorder (~1983) Rosacea Acne (~1959) Allergies (~2012) Hip pain (~2003) Finger fracture (~2009) Plantar fasciitis (~1999) Mumps Measles Chicken pox (~1951) Cataracts, bilateral (~2014) Pain of ovary (~2009) Skin cancer Surgical History Anesthesia History of section History of dilatation and curettage (~1981) History of ear surgery (~1954) History of tonsillectomy and adenoidectomy History of cataract removal with insertion of prosthetic lens (~04/07/21) Family History Father History of heart disease Hypertension Hyperlipidemia Smoker Alcoholism Mother Cancer Breast cancer Brother Appendicitis Stomach cancer History of heart disease History of heart valve repair Sister Dementia Stroke Uterine cancer UTI (urinary tract infection) Sister Obesity Grandfather Stroke Grandmother No problems noted. Grandfather History of heart disease Hypertension Hyperlipidemia Grandmother History of heart disease Stroke Other Kidney stones Thyroid disorder Social History household members: spouse Smoking Status: Never smoker alcohol intake: current Smoking Status: Never smoker alcohol intake frequency: a few times a week Substance Use Type: does not use Exam Initial Vital Signs Initial Vital Signs: Vital Signs Temperature 97.6 F 03/26/24 15:33 Pulse Rate 67 03/26/24 15:33 Respiratory Rate 16 03/26/24 15:33 Blood Pressure 146/85 H 03/26/24 15:33 Pulse Oximetry 100 03/26/24 15:33 Oxygen Delivery Method Room Air 03/26/24 15:33 Cardio Pulses: radial pulses present on the left Neuro Sensory Exam: no sensory deficits noted Extrem Other: Left shoulder and left elbow were unremarkable. Has discomfort with palpation of the dorsum of the left wrist but is able to flex and extend. Quite a bit of discomfort with supination. Her right wrist and right elbow unremarkable. Has discomfort with palpation throughout the right shoulder and very limited range of motion because of discomfort. No tenderness over the right clavicle. Has discomfort with abduction of the right shoulder but can passively abduct the shoulder. Procedures Orthopedic Splinting/Casting Injury #1: Side: left Upper Extremity Injury Location: wrist Upper Extremity Immobilizer: wrist splint Post splinting neuro exam: no change Post splinting vascular exam: no change Placed by: Nursing Course Orders Ordered: ED Orders 03/26/24 15:37 XR shoulder RT min 2V Stat 03/26/24 15:38 XR wrist LT min 3V Stat Vital Signs Vital signs: Vital Signs - 8 hr 03/26/24 19:48 03/26/24 19:49 03/26/24 19:49 Pulse Rate 69 69 Respiratory Rate Blood Pressure 162/88 H Pulse Oximetry 97 96 Oxygen Delivery Method 03/26/24 20:00 03/26/24 20:00 03/26/24 20:28 Pulse Rate 67 69 Respiratory Rate 18 16 Blood Pressure 137/67 146/68 H Pulse Oximetry 95 98 Oxygen Delivery Method Room Air MDM - Fall Imaging Data Extremity x-ray #1: Radiologist's Impression: PROCEDURE: XR SHOULDER RT MIN 2V INDICATIONS: fall/pain TECHNIQUE: 2 views of the shoulder were acquired. COMPARISON: None. FINDINGS: Bones: No fractures or dislocations. Moderate acromioclavicular joint osteoarthritic changes are seen. No suspicious bony lesions. Visualized ribs appear intact. Soft tissues: No suspicious soft tissue calcifications. IMPRESSION: No acute shoulder fracture or dislocation. Moderate acromioclavicular joint osteoarthritis. Extremity x-ray #2: Radiologist's Impression: PROCEDURE: XR WRIST LT MIN 3V INDICATIONS: fall/pain TECHNIQUE: 4 views of the wrist were acquired. COMPARISON: None. FINDINGS: Bones: There is mild osteopenia. No acute fracture or dislocation. Osteoarthritic changes are noted throughout wrist joints. No evidence of avascular necrosis. Soft tissues: Lobulated calcification adjacent to tip of ulnar styloid is seen. Mild dorsal wrist soft tissue swelling is noted. IMPRESSION: Dorsal wrist soft tissue swelling with calcification over ulnar and volar aspect of left wrist likely represent sequelae from remote injury. No acute fracture or dislocation. Wrist joint osteoarthritis. [facility] Narrative Medical decision making narrative: No fractures or dislocations noted on the x-rays but she does have bruising to the dorsum of the left wrist. She was pain with supination. Because of this will place her in a removable splint and she was informed that if she still has symptoms in about 1 week that it does need to be re-x-rayed. No fractures noted of the right shoulder. Not dislocated. Neurovascularly intact. Has discomfort with really any movement of the right shoulder. There was a possibility of a soft tissue injury such as rotator cuff but that is not going to be evaluated here because she can not get in the positions to even evaluate this because of the pain. We discussed conservative measures to include heat ice and Tylenol and aspirin. Recommended that she follow up with her primary doctor plalavi johnson if her symptoms do not improve. She was given return precautions. She expressed understanding and agreement. Discharge Plan Departure Patient Disposition: Home Clinical Impression: Sprain and strain of left wrist, Sprain of right shoulder Instructions: Shoulder Sprain, DI for Wrist Sprain Activity Restrictions/Additional Instructions: The splint should be worn a majority of the time for the next 2-3 days. You can take it off to shower and also put ice over the area. If you are still having quite a bit of discomfort in 1 week it does need to be re-x-rayed. Recommend ice over the right shoulder as well. You can take Tylenol and aspirin as needed for discomfort. Return to the emergency department for new symptoms. Prescriptions: No Action estradiol 0.01 % (0.1 mg/gram) cream 1 g vaginal .COMPLEX Qty: 42.5 3RF Rx Instructions: 1 g vaginally 1-2 x week; co Q10-red yeast rice 25-600 mg capsule See Rx Instructions PO .COMPLEX Rx Instructions: 1 cap with food 1-2 times per day orally; olive leaf extract 250 mg capsule See Rx Instructions PO .COMPLEX Rx Instructions: 1 capsule with food 1-2 times per day orally; Referrals: Molly Napoles ARNP [Primary Care Provider] - Stand Alone Forms: Patient Portal/API/Survey
[2024-03-26 20:28] VITALS: BP 146/68; PULSE 69; RESP 16; O2SAT 98
== END 2024-03-26 20:51 | disposition home or self-care (01) ==
PROVIDERS: Emergency Provider Emergency Medicine; PCP Nurse Practitioner
DX: S63.502A Unspecified sprain of left wrist, initial encounter (principal); S66.912A Strain of unspecified muscle, fascia and tendon at wrist and hand level, left hand, initial encounter; S43.401A Unspecified sprain of right shoulder joint, initial encounter; W18.30XA Fall on same level, unspecified, initial encounter
CPT/HCPCS: 73030; 73110; 99283

== ENCOUNTER → 2025-03-14 16:50 | Outpatient (CLI) | payer MEDICARE, BC, SELFPAY ==
--- NOTE | 2025-03-14 16:51 | DI.RAD.S_ITS ---
PROCEDURE: XR FOOT RT MIN 3V INDICATIONS: Rule out fracture 2nd 3rd metatarsal head area TECHNIQUE: 3 views of the foot were acquired. COMPARISON: None. FINDINGS: Bones: No fractures or dislocations. No suspicious bony lesions. Soft tissues: No tibiotalar joint effusion. Achilles tendon appears normal. IMPRESSION: No visualized acute fracture or dislocation. However, if clinical concern and/or pain persist, short interval imaging followup in 7-10 days is recommended, as occult injury cannot be definitively excluded. Dictated by: Kyleigh Agrawal M.D. on 03/14/2025 at 17:06 Approved by: Kyleigh Agrawal M.D. on 03/14/2025 at 17:06
== END ==
PROVIDERS: PCP Family Medicine; Referring Provider Chiropractor; Visit Provider Chiropractor
DX: S90.31XA Contusion of right foot, initial encounter (principal); X58.XXXA Exposure to other specified factors, initial encounter
CPT/HCPCS: 73630